=== PATIENT | female | born 1945 | race Caucasian/White ===

== ENCOUNTER 2023-06-22 11:15 | Emergency (ER) | payer MEDICARE, OTHER ==
[2023-06-22] MEDS ORDERED: Sodium Chloride 0.9% 10 ML Syringe FLUSH PRN (11:46)
[2023-06-22 11:57] LABS: HEMATOCRIT 28.9 % (37.0-47.0); HEMOGLOBIN 9.2 g/dL (12.0-16.0); MEAN CORPUSCULAR HEMOGLOBIN 28.4 pg (27.0-34.0); MEAN CORPUSCULAR HGB CONC 31.8 g/dL (33.0-35.0); MEAN CORPUSCULAR VOLUME 89.2 fL (80-100); PLATELET COUNT,PLT 140 10^3/uL (150-450); RED BLOOD CELL COUNT 3.24 10^6/uL (4.2-5.4); WHITE BLOOD CELL COUNT,WBC 12.7 10^3/uL (5.0-10.0)
[2023-06-22 12:02] LABS: BASOPHILS PERCENT AUTO 0.3 % (0.0-1.0); EOSINOPHILS PERCENT AUTO 1.3 % (1.0-3.0); LYMPHOCYTES PERCENT AUTO 13.9 % (20.5-50.1); MONOCYTES PERCENT AUTO 8.5 % (2-8)
[2023-06-22 12:12] LABS: APPEARANCE,URINE CLEAR (CLEAR); BILIRUBIN,URINE NEGATIVE (NEGATIVE); COLOR,URINE YELLOW (YELLOW); GLUCOSE,URINE NEGATIVE (NEGATIVE); KETONES,URINE TRACE (NEGATIVE); LEUKOCYTE ESTERASE,URINE SMALL (NEGATIVE); NITRITE,URINE NEGATIVE (NEGATIVE); OCCULT BLOOD,URINE NEGATIVE (NEGATIVE); PROTEIN,URINE NEGATIVE (NEGATIVE); UROBILINOGEN,URINE 0.2 mg/dL (0.2-1.0)
[2023-06-22 12:14] LABS: ALBUMIN 2.2 g/dL (3.4-5.0); ANION GAP 19.3 mEq/L (7-13); BILIRUBIN TOTAL 0.6 mg/dL (0.2-1.0); BUN/CREATININE RATIO 20.7 (No establ ref range); CALCIUM 8.5 mg/dL (8.5-10.1); CREATININE 0.92 mg/dL (0.55-1.02); EST CRCL DRUG DOSING (CG) 42.11 mL/min; POTASSIUM,K 4.3 mmol/L (3.5-5.1); PROTEIN TOTAL,TP 6.4 g/dL (6.4-8.2)
[2023-06-22 12:18] LABS: A/G RATIO 0.52
[2023-06-22] MEDS ORDERED: Aspirin 325 MG Tab PO ONE (12:20)
[2023-06-22 12:21] LABS: BACTERIA,URINE FEW /HPF (0-FEW/HPF); EPITHELIAL CELLS,URINE FEW /HPF (NOT SEEN); MUCUS,URINE OCCASIONAL /LPF (NOT SEEN); RBC,URINE 0-5 /HPF (0-5)
[2023-06-22] MEDS ORDERED: Morphine 2 MG/ML SYRINGE IVPUSH ONE (12:23)
[2023-06-22 12:26] LABS: BAND PERCENT MAN 8 %; EOSINOPHILS PERCENT MAN 1 % (1-3); LYMPHOCYTES PERCENT MAN 13 % (20-50); MONOCYTES PERCENT MAN 3 % (2-8); NRBC MANUAL 3 /100WBC; SEG NEUTROPHILS PERCENT MAN 75 % (42-75)
[2023-06-22] MEDS ORDERED: Aspirin 81 MG Tab.Chew ONE (12:30)
[2023-06-22] MEDS ORDERED: Aspirin 81 MG Tab.Chew PO ONE (12:31)
[2023-06-22] MEDS ORDERED: Iopamidol 612 MG/ML 100 ML Bottle IVPUSH ONE (12:43)
[2023-06-22] MEDS ORDERED: cefTRIAXone 1 GM Vial IVPUSH ONE ×2 (15:02→15:30)
[2023-06-22] MEDS ORDERED: Heparin Sodium/0.45% NaCl 25,000 UNITS/500 ML BAG IV SCH (15:15)
[2023-06-22 15:17] LABS: INR 2.2 (0.9-1.2); PROTHROMBIN TIME 21.5 SEC (9.0-12.0)
[2023-06-22] MEDS ORDERED: cefTRIAXone 250 MG Vial IM ONE (15:21)
== END 2023-06-22 18:26 ==
LOC: DL.ED 11:15
DX: I26.99 Other pulmonary embolism without acute cor pulmonale (principal); C78.02 Secondary malignant neoplasm of left lung; C80.1 Malignant (primary) neoplasm, unspecified; Z79.899 Other long term (current) drug therapy
CPT/HCPCS: 36415; 71045; 71260; 74177; 80053; 81001; 84484; 85025; 85610; 87086; 93005; 93010; 96365; 96366; 96375; 99285; A9270; J0696; J1644; J2270; Q9967; J3490

== ENCOUNTER 2023-07-06 11:46 | Emergency (ER) | payer MEDICARE, OTHER ==
[~2023-07-06 11:46] MED LIST: Sodium Chloride 0.9% 10 ML Syringe FLUSH PRN
[2023-07-06] MEDS ORDERED: Sodium Chloride 0.9% 1,000 ML IV ONE ×2 (12:04→12:12)
[2023-07-06 12:10] LABS: MEAN CORPUSCULAR HEMOGLOBIN 29.2 pg (27.0-34.0); MEAN CORPUSCULAR HGB CONC 32.9 g/dL (33.0-35.0); MEAN CORPUSCULAR VOLUME 88.8 fL (80-100); PLATELET COUNT,PLT 57 10^3/uL (150-450); RED BLOOD CELL COUNT 2.33 10^6/uL (4.2-5.4)
[2023-07-06 12:21] LABS: EOSINOPHILS PERCENT AUTO 11.3 % (1.0-3.0); HEMATOCRIT 20.7 % (37.0-47.0); HEMOGLOBIN 6.8 g/dL (12.0-16.0); LYMPHOCYTES PERCENT AUTO 52.8 % (20.5-50.1); MONOCYTES PERCENT AUTO 1.9 % (2-8); WHITE BLOOD CELL COUNT,WBC 0.5 10^3/uL (5.0-10.0)
[2023-07-06 12:29] LABS: ANION GAP 13.1 mEq/L (7-13); BILIRUBIN TOTAL 0.6 mg/dL (0.2-1.0); BUN/CREATININE RATIO 29.8 (No establ ref range); C-REACTIVE PROTEIN 13.35 ng/dL (<=0.30); CALCIUM 7.1 mg/dL (8.5-10.1); CREATININE 0.84 mg/dL (0.55-1.02); EST CRCL DRUG DOSING (CG) 46.13 mL/min; MAGNESIUM 1.8 mg/dL (1.8-2.4); POTASSIUM,K 4.1 mmol/L (3.5-5.1); PROTEIN TOTAL,TP 5.8 g/dL (6.4-8.2)
[2023-07-06 12:33] LABS: LACTIC ACID 1.1 mmol/L (0.4-2.0)
[2023-07-06 12:38] LABS: A/G RATIO 0.53
[2023-07-06 12:44] LABS: ANISOCYTOSIS 1+ SLIGHT; BAND PERCENT MAN 4 %; EOSINOPHILS PERCENT MAN 6 % (1-3); LYMPHOCYTES PERCENT MAN 52 % (20-50); MONOCYTES PERCENT MAN 8 % (2-8); MYELOCYTE PERCENT MAN 2; PLATELET COUNT ESTIMATE DECREASED; SEG NEUTROPHILS PERCENT MAN 28 % (42-75)
[2023-07-06] MEDS ORDERED: Pantoprazole 40 MG Vial IVPUSH ONE (12:51)
[2023-07-06] MEDS ORDERED: Pantoprazole 40 MG in Sodium Chloride 0.9% 100 ML IV SCH (12:52)
== END 2023-07-06 14:57 ==
LOC: DL.ED 11:46
DX: K92.2 Gastrointestinal hemorrhage, unspecified (principal); I10 Essential (primary) hypertension; Z87.891 Personal history of nicotine dependence
CPT/HCPCS: 36415; 36430; 80053; 82272; 83605; 83735; 85025; 86140; 86850; 86900; 86901; 86920; 86922; 96361; 96365; 96366; 99285; 99285-25; C9113; J3490; J7030; P9016

== ENCOUNTER 2023-07-25 11:52 | Inpatient (IN) | payer MEDICARE, OTHER ==
[2023-07-25] MEDS ORDERED: Albuterol/Ipratropium 3.0-0.5 MG/3 ML Neb Soln NEB PRN (15:18)
[2023-07-25] MEDS ORDERED: Ondansetron 4 MG Tab.DIS PO PRN (15:18)
[2023-07-25] MEDS ORDERED: Magnesium Hydroxide 400 MG/5 ML Susp 30 ML Cup PO PRN (15:18)
[2023-07-25] MEDS ORDERED: Sennosides/Docusate Sodium 50-8.6 MG Tab PO PRN (15:18)
[2023-07-25] MEDS ORDERED: Acetaminophen 325 MG Tab PO PRN (15:18)
[2023-07-25] MEDS ORDERED: Polyethylene Glycol 3350 Powder 17 GM Packet PO PRN (15:18)
[2023-07-25] MEDS ORDERED: Acetaminophen/oxyCODONE 325-5 MG Tab PO PRN (15:18)
[2023-07-25] MEDS ORDERED: Loperamide 2 MG Cap PO PRN (15:24)
[2023-07-25] MEDS ORDERED: Prochlorperazine 5 MG Tab PO PRN (15:55)
[2023-07-25] MEDS: Vancomycin 125 MG Cap PO SCH ×2 (16:35→21:19)
[2023-07-25] MEDS: Pantoprazole 40 MG Tab.CR PO SCH (16:35)
[2023-07-25] MEDS: Sucralfate Suspension 1 GM/10 ML Cup PO SCH ×2 (16:39→21:18)
[2023-07-25] MEDS: Potassium Chloride 10 MEQ Tab.ER PO SCH (17:00)
[2023-07-25] MEDS ORDERED: Melatonin 3 MG Tab PO SCH (21:00)
[2023-07-25] MEDS: Mirtazapine 15 MG Tab PO SCH (21:18)
[2023-07-25] MEDS: Apixaban 5 MG Tab PO SCH (21:18)
[2023-07-25] MEDS: amLODIPine 5 MG Tab PO SCH (21:18)
[2023-07-25] MEDS: Multivitamins with Iron/Calcium/Folic Acid/Minerals Tab PO SCH (21:18)
[2023-07-25] MEDS: Ascorbic Acid 500 MG Tab PO SCH (21:18)
[2023-07-25] MEDS: Acetaminophen 500 MG Tab PO SCH (21:18)
[2023-07-25] MEDS: Temazepam 15 MG Cap PO PRN (21:19)
[2023-07-25] MEDS: rOPINIRole 2 MG Tab PO SCH (21:19)
[2023-07-26] MEDS: Pantoprazole 40 MG Tab.CR PO SCH ×2 (05:01→16:15)
[2023-07-26] MEDS: Vancomycin 125 MG Cap PO SCH ×4 (08:11→22:10)
[2023-07-26] MEDS: Oxybutynin 5 MG Tab.ER PO SCH (08:11)
[2023-07-26] MEDS: Apixaban 5 MG Tab PO SCH ×2 (08:12→22:11)
[2023-07-26] MEDS: Acetaminophen 500 MG Tab PO SCH ×3 (08:12→22:10)
[2023-07-26] MEDS: Folic Acid 1 MG Tab PO SCH (08:12)
[2023-07-26] MEDS: Ferrous Sulfate 325 MG Tab PO SCH (08:12)
[2023-07-26] MEDS: Potassium Chloride 10 MEQ Tab.ER PO SCH ×2 (08:12→17:21)
[2023-07-26] MEDS: Phosphorus #1 250 MG Tab PO SCH (08:12)
[2023-07-26] MEDS: Calcium Carbonate/Vitamin D3 1250 MG-5 MCG Tab PO SCH (08:13)
[2023-07-26] MEDS: Sucralfate Suspension 1 GM/10 ML Cup PO SCH ×4 (08:13→22:09)
[2023-07-26] MEDS: Ascorbic Acid 500 MG Tab PO SCH ×2 (08:13→22:09)
[2023-07-26] MEDS: Losartan 50 MG Tab PO SCH (08:13)
[2023-07-26] MEDS: Fluticasone NASAL Spray 16 GM Bottle NASBOTH SCH (08:16)
[2023-07-26] MEDS ORDERED: MVI, Adult with Vitamin K 10 ML, Folic Acid 1 MG, Thiamine 100 MG in Lactated Ringers 1... IV ONE ×4 (14:46)
[2023-07-26] MEDS ORDERED: Thiamine 100 MG in Sodium Chloride 0.9% 100 ML IV ONE (14:47)
[2023-07-26] MEDS ORDERED: MVI, Adult with Vitamin K 10 ML, Folic Acid 1 MG, Thiamine 200 MG in Lactated Ringers 1... IV ONE ×4 (16:00)
[2023-07-26] MEDS: amLODIPine 5 MG Tab PO SCH (22:10)
[2023-07-26] MEDS: Multivitamins with Iron/Calcium/Folic Acid/Minerals Tab PO SCH (22:10)
[2023-07-26] MEDS: Temazepam 15 MG Cap PO PRN (22:11)
[2023-07-26] MEDS: rOPINIRole 2 MG Tab PO SCH (22:11)
[2023-07-26] MEDS: Mirtazapine 15 MG Tab PO SCH (22:11)
[2023-07-27] MEDS: oxyCODONE 5 MG Tab PO PRN (03:10)
[2023-07-27] MEDS: Apixaban 5 MG Tab PO SCH ×2 (08:45→20:02)
[2023-07-27] MEDS: Ferrous Sulfate 325 MG Tab PO SCH (08:45)
[2023-07-27] MEDS: Oxybutynin 5 MG Tab.ER PO SCH (08:45)
[2023-07-27] MEDS: Pantoprazole 40 MG Tab.CR PO SCH ×2 (08:45→15:46)
[2023-07-27] MEDS: Losartan 50 MG Tab PO SCH (08:46)
[2023-07-27] MEDS: Sucralfate Suspension 1 GM/10 ML Cup PO SCH ×4 (08:47→20:01)
[2023-07-27] MEDS: Acetaminophen 500 MG Tab PO SCH ×3 (08:50→20:02)
[2023-07-27] MEDS: Ascorbic Acid 500 MG Tab PO SCH ×2 (08:50→20:01)
[2023-07-27] MEDS: Potassium Chloride 10 MEQ Tab.ER PO SCH ×2 (08:50→17:11)
[2023-07-27] MEDS: Folic Acid 1 MG Tab PO SCH (08:51)
[2023-07-27] MEDS: Phosphorus #1 250 MG Tab PO SCH (08:51)
[2023-07-27] MEDS: Calcium Carbonate/Vitamin D3 1250 MG-5 MCG Tab PO SCH (08:51)
[2023-07-27] MEDS: Fluticasone NASAL Spray 16 GM Bottle NASBOTH SCH (08:51)
[2023-07-27] MEDS: Mirtazapine 15 MG Tab PO SCH (20:02)
[2023-07-27] MEDS: amLODIPine 5 MG Tab PO SCH ×2 (20:02→20:50)
[2023-07-27] MEDS: Multivitamins with Iron/Calcium/Folic Acid/Minerals Tab PO SCH (20:03)
[2023-07-27] MEDS: rOPINIRole 2 MG Tab PO SCH (20:03)
[2023-07-28] MEDS: oxyCODONE 5 MG Tab PO PRN (01:35)
[2023-07-28] MEDS: Pantoprazole 40 MG Tab.CR PO SCH ×2 (05:46→16:34)
[2023-07-28 06:40] LABS: HEMATOCRIT 24.5 % (37.0-47.0); HEMOGLOBIN 7.7 g/dL (12.0-16.0); MEAN CORPUSCULAR HEMOGLOBIN 29.6 pg (27.0-34.0); MEAN CORPUSCULAR HGB CONC 31.4 g/dL (33.0-35.0); MEAN CORPUSCULAR VOLUME 94.2 fL (80-100); PLATELET COUNT,PLT 183 10^3/uL (150-450); WHITE BLOOD CELL COUNT,WBC 18.2 10^3/uL (5.0-10.0)
[2023-07-28 06:49] LABS: BASOPHILS PERCENT AUTO 0.5 % (0.0-1.0); EOSINOPHILS PERCENT AUTO 0.5 % (1.0-3.0); MONOCYTES PERCENT AUTO 9.1 % (2-8); NEUTROPHILS PERCENT AUTO 73.9 % (42.2-75.2)
[2023-07-28 06:56] LABS: ALBUMIN 1.4 g/dL (3.4-5.0); BILIRUBIN TOTAL 0.4 mg/dL (0.2-1.0); BUN/CREATININE RATIO 10.5 (No establ ref range); CALCIUM 6.8 mg/dL (8.5-10.1); CREATININE 0.57 mg/dL (0.55-1.02); EST CRCL DRUG DOSING (CG) 70.83 mL/min; MAGNESIUM 1.4 mg/dL (1.8-2.4); PROTEIN TOTAL,TP 5.5 g/dL (6.4-8.2)
[2023-07-28 07:03] LABS: A/G RATIO 0.34
[2023-07-28 07:07] LABS: BAND PERCENT MAN 13 %; LYMPHOCYTES PERCENT MAN 13 % (20-50); METAMYELOCYTE PERCENT MAN 2; MONOCYTES PERCENT MAN 11 % (2-8); NRBC MANUAL 1 /100WBC; SEG NEUTROPHILS PERCENT MAN 61 % (42-75)
[2023-07-28] MEDS: Ascorbic Acid 500 MG Tab PO SCH ×2 (08:46→21:12)
[2023-07-28] MEDS: Sucralfate Suspension 1 GM/10 ML Cup PO SCH ×4 (08:46→21:13)
[2023-07-28] MEDS: Acetaminophen 500 MG Tab PO SCH ×3 (08:48→21:12)
[2023-07-28] MEDS: Potassium Chloride 10 MEQ Tab.ER PO SCH ×2 (08:49→17:29)
[2023-07-28] MEDS: Phosphorus #1 250 MG Tab PO SCH (08:49)
[2023-07-28] MEDS: Folic Acid 1 MG Tab PO SCH (08:51)
[2023-07-28] MEDS: Oxybutynin 5 MG Tab.ER PO SCH (08:51)
[2023-07-28] MEDS: Apixaban 5 MG Tab PO SCH ×2 (08:52→21:13)
[2023-07-28] MEDS: Losartan 50 MG Tab PO SCH (08:52)
[2023-07-28] MEDS: Ferrous Sulfate 325 MG Tab PO SCH (08:53)
[2023-07-28] MEDS: Calcium Carbonate/Vitamin D3 1250 MG-5 MCG Tab PO SCH (08:53)
[2023-07-28] MEDS: Fluticasone NASAL Spray 16 GM Bottle NASBOTH SCH (08:58)
[2023-07-28] MEDS: Magnesium Oxide 400 MG Tab PO SCH (17:29)
[2023-07-28] MEDS: Multivitamins with Iron/Calcium/Folic Acid/Minerals Tab PO SCH (21:12)
[2023-07-28] MEDS: Mirtazapine 15 MG Tab PO SCH (21:13)
[2023-07-28] MEDS: rOPINIRole 2 MG Tab PO SCH (21:13)
[2023-07-28] MEDS: amLODIPine 5 MG Tab PO SCH (21:13)
[2023-07-28] MEDS: Temazepam 15 MG Cap PO PRN (21:25)
[2023-07-29] MEDS: Pantoprazole 40 MG Tab.CR PO SCH ×3 (04:37→16:22)
[2023-07-29] MEDS: Potassium Chloride 10 MEQ Tab.ER PO SCH ×2 (07:40→17:16)
[2023-07-29] MEDS: Magnesium Oxide 400 MG Tab PO SCH ×2 (07:41→17:16)
[2023-07-29] MEDS: Fluticasone NASAL Spray 16 GM Bottle NASBOTH SCH (10:06)
[2023-07-29] MEDS: Sucralfate Suspension 1 GM/10 ML Cup PO SCH ×4 (10:07→21:48)
[2023-07-29] MEDS: Ferrous Sulfate 325 MG Tab PO SCH (10:08)
[2023-07-29] MEDS: Losartan 50 MG Tab PO SCH (10:08)
[2023-07-29] MEDS: Apixaban 5 MG Tab PO SCH ×2 (10:09→21:46)
[2023-07-29] MEDS: Oxybutynin 5 MG Tab.ER PO SCH (10:09)
[2023-07-29] MEDS: Acetaminophen 500 MG Tab PO SCH ×3 (10:10→21:46)
[2023-07-29] MEDS: Folic Acid 1 MG Tab PO SCH (10:10)
[2023-07-29] MEDS: Calcium Carbonate/Vitamin D3 1250 MG-5 MCG Tab PO SCH (10:11)
[2023-07-29] MEDS: Phosphorus #1 250 MG Tab PO SCH (10:11)
[2023-07-29] MEDS: Ascorbic Acid 500 MG Tab PO SCH ×2 (10:12→21:48)
[2023-07-29] MEDS: Mirtazapine 15 MG Tab PO SCH (21:46)
[2023-07-29] MEDS: amLODIPine 5 MG Tab PO SCH (21:46)
[2023-07-29] MEDS: Multivitamins with Iron/Calcium/Folic Acid/Minerals Tab PO SCH (21:46)
[2023-07-29] MEDS: Temazepam 15 MG Cap PO PRN (21:47)
[2023-07-29] MEDS: rOPINIRole 2 MG Tab PO SCH (21:48)
[2023-07-30] MEDS: Pantoprazole 40 MG Tab.CR PO SCH ×2 (06:01→16:28)
[2023-07-30] MEDS: Acetaminophen 500 MG Tab PO SCH ×3 (08:49→21:26)
[2023-07-30] MEDS: Apixaban 5 MG Tab PO SCH ×2 (08:51→21:25)
[2023-07-30] MEDS: Folic Acid 1 MG Tab PO SCH (08:51)
[2023-07-30] MEDS: Sucralfate Suspension 1 GM/10 ML Cup PO SCH ×4 (08:51→21:23)
[2023-07-30] MEDS: Potassium Chloride 10 MEQ Tab.ER PO SCH ×2 (08:51→18:11)
[2023-07-30] MEDS: Oxybutynin 5 MG Tab.ER PO SCH (08:51)
[2023-07-30] MEDS: Phosphorus #1 250 MG Tab PO SCH (08:52)
[2023-07-30] MEDS: Calcium Carbonate/Vitamin D3 1250 MG-5 MCG Tab PO SCH (08:52)
[2023-07-30] MEDS: Magnesium Oxide 400 MG Tab PO SCH (08:52)
[2023-07-30] MEDS: Ferrous Sulfate 325 MG Tab PO SCH (08:55)
[2023-07-30] MEDS: Losartan 50 MG Tab PO SCH (08:58)
[2023-07-30] MEDS: Ascorbic Acid 500 MG Tab PO SCH ×2 (09:07→21:25)
[2023-07-30] MEDS: Fluticasone NASAL Spray 16 GM Bottle NASBOTH SCH (09:07)
[2023-07-30] MEDS: MAGNESIUM CHLORIDE 64 MG PO SCH ×4 (10:29→20:14)
[2023-07-30] MEDS: ZINC 50 MG PO SCH (12:11)
[2023-07-30] MEDS: rOPINIRole 2 MG Tab PO SCH (21:24)
[2023-07-30] MEDS: amLODIPine 5 MG Tab PO SCH (21:24)
[2023-07-30] MEDS: Mirtazapine 15 MG Tab PO SCH (21:24)
[2023-07-30] MEDS: Multivitamins with Iron/Calcium/Folic Acid/Minerals Tab PO SCH (21:25)
[2023-07-31] MEDS: Pantoprazole 40 MG Tab.CR PO SCH ×2 (06:14→17:51)
[2023-07-31] MEDS: Losartan 50 MG Tab PO SCH (10:07)
[2023-07-31] MEDS: Calcium Carbonate/Vitamin D3 1250 MG-5 MCG Tab PO SCH (10:07)
[2023-07-31] MEDS: Phosphorus #1 250 MG Tab PO SCH (10:08)
[2023-07-31] MEDS: Acetaminophen 500 MG Tab PO SCH ×3 (10:09→20:30)
[2023-07-31] MEDS: Sucralfate Suspension 1 GM/10 ML Cup PO SCH ×4 (10:09→20:27)
[2023-07-31] MEDS: Potassium Chloride 10 MEQ Tab.ER PO SCH ×2 (10:09→17:52)
[2023-07-31] MEDS: Oxybutynin 5 MG Tab.ER PO SCH (10:10)
[2023-07-31] MEDS: Ascorbic Acid 500 MG Tab PO SCH ×2 (10:10→20:29)
[2023-07-31] MEDS: Folic Acid 1 MG Tab PO SCH (10:10)
[2023-07-31] MEDS: Ferrous Sulfate 325 MG Tab PO SCH (10:10)
[2023-07-31] MEDS: Apixaban 5 MG Tab PO SCH ×2 (10:10→20:27)
[2023-07-31] MEDS: Fluticasone NASAL Spray 16 GM Bottle NASBOTH SCH (10:21)
[2023-07-31] MEDS: ZINC 50 MG PO SCH (13:00)
[2023-07-31] MEDS: MAGNESIUM CHLORIDE 64 MG PO SCH (17:52)
[2023-07-31] MEDS: rOPINIRole 2 MG Tab PO SCH (20:27)
[2023-07-31] MEDS: Mirtazapine 15 MG Tab PO SCH (20:27)
[2023-07-31] MEDS: amLODIPine 5 MG Tab PO SCH (20:28)
[2023-07-31] MEDS: Multivitamins with Iron/Calcium/Folic Acid/Minerals Tab PO SCH (20:29)
[2023-08-01] MEDS: oxyCODONE 5 MG Tab PO PRN (04:59)
[2023-08-01] MEDS: Pantoprazole 40 MG Tab.CR PO SCH ×2 (05:00→17:19)
[2023-08-01] MEDS: Sucralfate Suspension 1 GM/10 ML Cup PO SCH ×4 (08:36→20:24)
[2023-08-01] MEDS: Potassium Chloride 10 MEQ Tab.ER PO SCH ×2 (08:36→17:19)
[2023-08-01] MEDS: Folic Acid 1 MG Tab PO SCH (08:36)
[2023-08-01] MEDS: Acetaminophen 500 MG Tab PO SCH ×3 (08:36→20:21)
[2023-08-01] MEDS: Apixaban 5 MG Tab PO SCH ×2 (08:36→20:20)
[2023-08-01] MEDS: Oxybutynin 5 MG Tab.ER PO SCH (08:36)
[2023-08-01] MEDS: Phosphorus #1 250 MG Tab PO SCH (08:36)
[2023-08-01] MEDS: Ascorbic Acid 500 MG Tab PO SCH ×2 (08:36→20:23)
[2023-08-01] MEDS: Ferrous Sulfate 325 MG Tab PO SCH (08:37)
[2023-08-01] MEDS: Calcium Carbonate/Vitamin D3 1250 MG-5 MCG Tab PO SCH (08:37)
[2023-08-01] MEDS: Losartan 50 MG Tab PO SCH (08:43)
[2023-08-01] MEDS: Fluticasone NASAL Spray 16 GM Bottle NASBOTH SCH (08:46)
[2023-08-01] MEDS: ZINC 50 MG PO SCH (13:02)
[2023-08-01] MEDS: MAGNESIUM CHLORIDE 64 MG PO SCH (17:19)
[2023-08-01] MEDS: rOPINIRole 2 MG Tab PO SCH (20:20)
[2023-08-01] MEDS: Mirtazapine 15 MG Tab PO SCH (20:20)
[2023-08-01] MEDS: Multivitamins with Iron/Calcium/Folic Acid/Minerals Tab PO SCH (20:22)
[2023-08-01] MEDS: amLODIPine 5 MG Tab PO SCH (20:23)
[2023-08-01] MEDS: Temazepam 15 MG Cap PO PRN (22:24)
[2023-08-02] MEDS: Pantoprazole 40 MG Tab.CR PO SCH ×2 (05:36→17:00)
[2023-08-02] MEDS: Acetaminophen 500 MG Tab PO SCH ×3 (08:14→20:37)
[2023-08-02] MEDS: Losartan 50 MG Tab PO SCH (08:16)
[2023-08-02] MEDS: Sucralfate Suspension 1 GM/10 ML Cup PO SCH ×4 (08:17→20:35)
[2023-08-02] MEDS: Fluticasone NASAL Spray 16 GM Bottle NASBOTH SCH (08:17)
[2023-08-02] MEDS: Ascorbic Acid 500 MG Tab PO SCH ×2 (08:17→20:36)
[2023-08-02] MEDS: Folic Acid 1 MG Tab PO SCH (08:18)
[2023-08-02] MEDS: Potassium Chloride 10 MEQ Tab.ER PO SCH ×2 (08:18→17:00)
[2023-08-02] MEDS: Oxybutynin 5 MG Tab.ER PO SCH (08:18)
[2023-08-02] MEDS: Apixaban 5 MG Tab PO SCH ×2 (08:19→20:36)
[2023-08-02] MEDS: Calcium Carbonate/Vitamin D3 1250 MG-5 MCG Tab PO SCH (08:19)
[2023-08-02] MEDS: Ferrous Sulfate 325 MG Tab PO SCH (08:19)
[2023-08-02] MEDS: Phosphorus #1 250 MG Tab PO SCH (08:19)
[2023-08-02] MEDS: ZINC 50 MG PO SCH (13:18)
[2023-08-02] MEDS ORDERED: Temazepam 15 MG Cap PO PRN (14:39)
[2023-08-02] MEDS: MAGNESIUM CHLORIDE 64 MG PO SCH (17:02)
[2023-08-02] MEDS: rOPINIRole 2 MG Tab PO SCH (20:37)
[2023-08-02] MEDS: Mirtazapine 15 MG Tab PO SCH (20:37)
[2023-08-02] MEDS: amLODIPine 5 MG Tab PO SCH (20:39)
[2023-08-02] MEDS: Multivitamins with Iron/Calcium/Folic Acid/Minerals Tab PO SCH (20:39)
[2023-08-02] MEDS: Mineral Oil/Petrolatum/Phenylephrine/Shark Liver Oil Oint 57 GM Tube TOP PRN (21:40)
[2023-08-02] MEDS ORDERED: Ibuprofen 600 MG Tab PO PRN (22:46)
[2023-08-03] MEDS: Pantoprazole 40 MG Tab.CR PO SCH ×2 (06:10→17:01)
[2023-08-03] MEDS: Losartan 50 MG Tab PO SCH (08:12)
[2023-08-03] MEDS: Ferrous Sulfate 325 MG Tab PO SCH (08:12)
[2023-08-03] MEDS: Folic Acid 1 MG Tab PO SCH (08:12)
[2023-08-03] MEDS: Calcium Carbonate/Vitamin D3 1250 MG-5 MCG Tab PO SCH (08:13)
[2023-08-03] MEDS: Apixaban 5 MG Tab PO SCH ×2 (08:13→20:38)
[2023-08-03] MEDS: Ascorbic Acid 500 MG Tab PO SCH ×2 (08:13→20:38)
[2023-08-03] MEDS: Potassium Chloride 10 MEQ Tab.ER PO SCH ×2 (08:14→17:01)
[2023-08-03] MEDS: Phosphorus #1 250 MG Tab PO SCH (08:14)
[2023-08-03] MEDS: Acetaminophen 500 MG Tab PO SCH ×4 (08:14→20:39)
[2023-08-03] MEDS: Sucralfate Suspension 1 GM/10 ML Cup PO SCH ×4 (08:14→20:37)
[2023-08-03] MEDS: Fluticasone NASAL Spray 16 GM Bottle NASBOTH SCH (08:15)
[2023-08-03] MEDS: Mineral Oil/Petrolatum/Phenylephrine/Shark Liver Oil Oint 57 GM Tube TOP PRN (08:23)
[2023-08-03] MEDS: Oxybutynin 5 MG Tab.ER PO SCH (11:36)
[2023-08-03] MEDS: ZINC 50 MG PO SCH (11:38)
[2023-08-03] MEDS: MAGNESIUM CHLORIDE 64 MG PO SCH (17:04)
[2023-08-03] MEDS: Mirtazapine 15 MG Tab PO SCH (20:37)
[2023-08-03] MEDS: rOPINIRole 2 MG Tab PO SCH (20:38)
[2023-08-03] MEDS: amLODIPine 5 MG Tab PO SCH (20:39)
[2023-08-03] MEDS: Multivitamins with Iron/Calcium/Folic Acid/Minerals Tab PO SCH (20:39)
[2023-08-04] MEDS: Pantoprazole 40 MG Tab.CR PO SCH ×2 (06:15→16:34)
[2023-08-04 06:17] LABS: HEMATOCRIT 21.4 % (37.0-47.0); MEAN CORPUSCULAR HEMOGLOBIN 29.3 pg (27.0-34.0); MEAN CORPUSCULAR HGB CONC 31.8 g/dL (33.0-35.0); MEAN CORPUSCULAR VOLUME 92.2 fL (80-100); PLATELET COUNT,PLT 301 10^3/uL (150-450); RED BLOOD CELL COUNT 2.32 10^6/uL (4.2-5.4); WHITE BLOOD CELL COUNT,WBC 25.5 10^3/uL (5.0-10.0)
[2023-08-04 06:35] LABS: HEMOGLOBIN 6.8 g/dL (12.0-16.0)
[2023-08-04 06:36] LABS: BASOPHILS PERCENT AUTO 0.5 % (0.0-1.0); LYMPHOCYTES PERCENT AUTO 14.8 % (20.5-50.1); MONOCYTES PERCENT AUTO 8.3 % (2-8); NEUTROPHILS PERCENT AUTO 75.4 % (42.2-75.2)
[2023-08-04 06:48] LABS: ALBUMIN 1.3 g/dL (3.4-5.0); ANION GAP 14.6 mEq/L (7-13); BILIRUBIN TOTAL 0.5 mg/dL (0.2-1.0); BUN/CREATININE RATIO 15.8 (No establ ref range); CALCIUM 6.2 mg/dL (8.5-10.1); CREATININE 0.57 mg/dL (0.55-1.02); EST CRCL DRUG DOSING (CG) 67.7 mL/min; MAGNESIUM 1.5 mg/dL (1.8-2.4); POTASSIUM,K 4.6 mmol/L (3.5-5.1); PROTEIN TOTAL,TP 5.1 g/dL (6.4-8.2)
[2023-08-04 06:50] LABS: A/G RATIO 0.34
[2023-08-04 07:47] LABS: BAND PERCENT MAN 11 %; EOSINOPHILS PERCENT MAN 4 % (1-3); LYMPHOCYTES PERCENT MAN 9 % (20-50); METAMYELOCYTE PERCENT MAN 3; MONOCYTES PERCENT MAN 4 % (2-8); NRBC MANUAL 3 /100WBC; SEG NEUTROPHILS PERCENT MAN 69 % (42-75)
[2023-08-04] MEDS: Sucralfate Suspension 1 GM/10 ML Cup PO SCH ×4 (08:02→20:37)
[2023-08-04] MEDS: Folic Acid 1 MG Tab PO SCH ×2 (08:03→15:33)
[2023-08-04] MEDS: Apixaban 5 MG Tab PO SCH ×3 (08:03→20:36)
[2023-08-04] MEDS: Losartan 50 MG Tab PO SCH ×2 (08:03→15:35)
[2023-08-04] MEDS: Oxybutynin 5 MG Tab.ER PO SCH ×2 (08:04→15:32)
[2023-08-04] MEDS: Ascorbic Acid 500 MG Tab PO SCH ×2 (08:04→20:37)
[2023-08-04] MEDS: Phosphorus #1 250 MG Tab PO SCH (08:04)
[2023-08-04] MEDS: Potassium Chloride 10 MEQ Tab.ER PO SCH ×2 (08:04→17:13)
[2023-08-04] MEDS: Calcium Carbonate/Vitamin D3 1250 MG-5 MCG Tab PO SCH (08:04)
[2023-08-04] MEDS: Ferrous Sulfate 325 MG Tab PO SCH (08:04)
[2023-08-04] MEDS: Mineral Oil/Petrolatum/Phenylephrine/Shark Liver Oil Oint 57 GM Tube TOP PRN (08:05)
[2023-08-04] MEDS: Acetaminophen 500 MG Tab PO SCH ×3 (08:05→20:37)
[2023-08-04] MEDS: Fluticasone NASAL Spray 16 GM Bottle NASBOTH SCH (08:05)
[2023-08-04] MEDS ORDERED: Acetaminophen 325 MG Tab PO ONE (08:29)
[2023-08-04] MEDS ORDERED: diphenhydrAMINE 50 MG/ML SDV IV ONE (08:29)
[2023-08-04] MEDS ORDERED: Dexamethasone 4 MG/ML SDV IVPUSH ONE (08:29)
[2023-08-04] MEDS ORDERED: Magnesium Sulfate/Water 2 GM in Premix Bag 1 BAG IV ONE ×2 (08:29→17:00)
[2023-08-04] MEDS: Ondansetron 4 MG Tab.DIS PO PRN (08:38)
[2023-08-04] MEDS: Cholecalciferol (Vitamin D3) 25 MCG Tab PO ONE ×2 (11:24→18:33)
[2023-08-04] MEDS: ZINC 50 MG PO SCH (14:46)
[2023-08-04] MEDS: MAGNESIUM CHLORIDE 64 MG PO SCH (17:13)
[2023-08-04] MEDS: Mirtazapine 15 MG Tab PO SCH (20:36)
[2023-08-04] MEDS: Multivitamins with Iron/Calcium/Folic Acid/Minerals Tab PO SCH (20:36)
[2023-08-04] MEDS: rOPINIRole 2 MG Tab PO SCH (20:36)
[2023-08-04] MEDS: amLODIPine 5 MG Tab PO SCH (20:36)
[2023-08-05] MEDS: Pantoprazole 40 MG Tab.CR PO SCH ×2 (05:39→17:14)
[2023-08-05] MEDS: Folic Acid 1 MG Tab PO SCH (08:32)
[2023-08-05] MEDS: Phosphorus #1 250 MG Tab PO SCH ×2 (08:33→10:30)
[2023-08-05] MEDS: Oxybutynin 5 MG Tab.ER PO SCH (08:33)
[2023-08-05] MEDS: Apixaban 5 MG Tab PO SCH ×2 (08:33→20:17)
[2023-08-05] MEDS: Ferrous Sulfate 325 MG Tab PO SCH (08:33)
[2023-08-05] MEDS: Acetaminophen 500 MG Tab PO SCH ×3 (08:33→20:08)
[2023-08-05] MEDS: Ascorbic Acid 500 MG Tab PO SCH ×3 (08:33→20:09)
[2023-08-05] MEDS: Calcium Carbonate/Vitamin D3 1250 MG-5 MCG Tab PO SCH (08:34)
[2023-08-05] MEDS: Sucralfate Suspension 1 GM/10 ML Cup PO SCH ×4 (08:34→20:10)
[2023-08-05] MEDS: Cholecalciferol (Vitamin D3) 10 MCG Tab PO SCH (08:34)
[2023-08-05] MEDS: Losartan 50 MG Tab PO SCH (08:35)
[2023-08-05] MEDS: Potassium Chloride 10 MEQ Tab.ER PO SCH ×2 (10:29→17:14)
[2023-08-05] MEDS: Fluticasone NASAL Spray 16 GM Bottle NASBOTH SCH (10:32)
[2023-08-05] MEDS: ZINC 50 MG PO SCH (12:00)
[2023-08-05] MEDS: MAGNESIUM CHLORIDE 64 MG PO SCH (17:15)
[2023-08-05] MEDS: Multivitamins with Iron/Calcium/Folic Acid/Minerals Tab PO SCH (20:08)
[2023-08-05] MEDS: rOPINIRole 2 MG Tab PO SCH (20:10)
[2023-08-05] MEDS: amLODIPine 5 MG Tab PO SCH (20:16)
[2023-08-05] MEDS: Mirtazapine 15 MG Tab PO SCH (20:17)
[2023-08-06] MEDS: Pantoprazole 40 MG Tab.CR PO SCH ×2 (06:26→17:03)
[2023-08-06] MEDS: Ascorbic Acid 500 MG Tab PO SCH ×2 (08:32→20:48)
[2023-08-06] MEDS: Acetaminophen 500 MG Tab PO SCH ×3 (08:34→20:47)
[2023-08-06] MEDS: Potassium Chloride 10 MEQ Tab.ER PO SCH ×2 (08:34→17:03)
[2023-08-06] MEDS: Cholecalciferol (Vitamin D3) 10 MCG Tab PO SCH (08:35)
[2023-08-06] MEDS: Losartan 50 MG Tab PO SCH (08:36)
[2023-08-06] MEDS: Calcium Carbonate/Vitamin D3 1250 MG-5 MCG Tab PO SCH ×2 (08:36→11:05)
[2023-08-06] MEDS: Ferrous Sulfate 325 MG Tab PO SCH (08:37)
[2023-08-06] MEDS: Oxybutynin 5 MG Tab.ER PO SCH (08:37)
[2023-08-06] MEDS: Apixaban 5 MG Tab PO SCH ×2 (08:38→20:46)
[2023-08-06] MEDS: Folic Acid 1 MG Tab PO SCH (08:38)
[2023-08-06] MEDS: Phosphorus #1 250 MG Tab PO SCH (08:38)
[2023-08-06] MEDS: Fluticasone NASAL Spray 16 GM Bottle NASBOTH SCH (08:39)
[2023-08-06] MEDS: Ondansetron 4 MG Tab.DIS PO PRN (10:55)
[2023-08-06] MEDS ORDERED: Sucralfate Suspension 1 GM/10 ML Cup PO SCH (11:00)
[2023-08-06] MEDS: ZINC 50 MG PO SCH (11:00)
[2023-08-06] MEDS: Sucralfate Suspension 1 GM/10 ML Cup PO SCH ×2 (17:04→20:45)
[2023-08-06] MEDS: MAGNESIUM CHLORIDE 64 MG PO SCH (17:05)
[2023-08-06] MEDS: rOPINIRole 2 MG Tab PO SCH (20:47)
[2023-08-06] MEDS: amLODIPine 5 MG Tab PO SCH (20:47)
[2023-08-06] MEDS: Multivitamins with Iron/Calcium/Folic Acid/Minerals Tab PO SCH (20:47)
[2023-08-06] MEDS: Mirtazapine 15 MG Tab PO SCH (20:47)
[2023-08-07] MEDS: Pantoprazole 40 MG Tab.CR PO SCH ×2 (06:23→17:19)
[2023-08-07] MEDS: Sucralfate Suspension 1 GM/10 ML Cup PO SCH ×4 (06:23→21:04)
[2023-08-07 06:35] LABS: HEMATOCRIT 25.6 % (37.0-47.0); HEMOGLOBIN 8.4 g/dL (12.0-16.0); MEAN CORPUSCULAR HEMOGLOBIN 30.2 pg (27.0-34.0); MEAN CORPUSCULAR HGB CONC 32.8 g/dL (33.0-35.0); MEAN CORPUSCULAR VOLUME 92.1 fL (80-100); PLATELET COUNT,PLT 261 10^3/uL (150-450); RED BLOOD CELL COUNT 2.78 10^6/uL (4.2-5.4); WHITE BLOOD CELL COUNT,WBC 23.2 10^3/uL (5.0-10.0)
[2023-08-07 07:12] LABS: ALBUMIN 1.3 g/dL (3.4-5.0); ANION GAP 11.4 mEq/L (7-13); BILIRUBIN TOTAL 0.5 mg/dL (0.2-1.0); BUN/CREATININE RATIO 22.4 (No establ ref range); CREATININE 0.67 mg/dL (0.55-1.02); EST CRCL DRUG DOSING (CG) 57.59 mL/min; MAGNESIUM 1.7 mg/dL (1.8-2.4); POTASSIUM,K 4.4 mmol/L (3.5-5.1); PROTEIN TOTAL,TP 5.1 g/dL (6.4-8.2)
[2023-08-07 07:14] LABS: A/G RATIO 0.34; CALCIUM 5.9 mg/dL (8.5-10.1)
[2023-08-07 07:49] LABS: ANISOCYTOSIS 2+ MODERATE; BAND PERCENT MAN 6 %; EOSINOPHILS PERCENT MAN 2 % (1-3); LYMPHOCYTES PERCENT MAN 15 % (20-50); MICROCYTOSIS FEW; MONOCYTES PERCENT MAN 10 % (2-8); NRBC MANUAL 3 /100WBC; SEG NEUTROPHILS PERCENT MAN 67 % (42-75); SPHEROCYTES FEW
[2023-08-07 07:50] LABS: HYPOCHROMASIA 1+ SLIGHT; POIKILOCYTOSIS 1+ SLIGHT; SCHISTOCYTES FEW; TARGET CELLS RARE
[2023-08-07 07:51] LABS: STOMATOCYTES FEW
[2023-08-07] MEDS: Calcium Carbonate/Vitamin D3 1250 MG-5 MCG Tab PO SCH (08:32)
[2023-08-07] MEDS: Potassium Chloride 10 MEQ Tab.ER PO SCH ×2 (08:32→18:42)
[2023-08-07] MEDS: Oxybutynin 5 MG Tab.ER PO SCH (08:33)
[2023-08-07] MEDS: Apixaban 5 MG Tab PO SCH ×2 (08:33→20:59)
[2023-08-07] MEDS: Cholecalciferol (Vitamin D3) 10 MCG Tab PO SCH (08:33)
[2023-08-07] MEDS: Ondansetron 4 MG Tab.DIS PO PRN (08:33)
[2023-08-07] MEDS: Losartan 50 MG Tab PO SCH (08:34)
[2023-08-07] MEDS: Ascorbic Acid 500 MG Tab PO SCH ×2 (08:37→20:43)
[2023-08-07] MEDS: Folic Acid 1 MG Tab PO SCH (08:37)
[2023-08-07] MEDS: Fluticasone NASAL Spray 16 GM Bottle NASBOTH SCH (08:37)
[2023-08-07] MEDS: Phosphorus #1 250 MG Tab PO SCH (08:37)
[2023-08-07] MEDS: Ferrous Sulfate 325 MG Tab PO SCH (08:37)
[2023-08-07] MEDS: Acetaminophen 500 MG Tab PO SCH ×3 (08:37→20:59)
[2023-08-07] MEDS: ZINC 50 MG PO SCH (11:43)
[2023-08-07] MEDS ORDERED: Magnesium Sulfate/Water 2 GM in Premix Bag 1 BAG IV ONE (12:26)
[2023-08-07] MEDS: MAGNESIUM CHLORIDE 64 MG PO SCH (18:42)
[2023-08-07] MEDS: Magnesium Oxide 400 MG Tab PO SCH (18:42)
[2023-08-07] MEDS: Multivitamins with Iron/Calcium/Folic Acid/Minerals Tab PO SCH (20:43)
[2023-08-07] MEDS: amLODIPine 5 MG Tab PO SCH (20:57)
[2023-08-07] MEDS: Mirtazapine 15 MG Tab PO SCH (20:59)
[2023-08-07] MEDS: rOPINIRole 2 MG Tab PO SCH (20:59)
[2023-08-08] MEDS: Pantoprazole 40 MG Tab.CR PO SCH (06:16)
[2023-08-08] MEDS: Sucralfate Suspension 1 GM/10 ML Cup PO SCH ×2 (06:16→10:52)
[2023-08-08] MEDS: Ondansetron 4 MG Tab.DIS PO PRN (08:17)
[2023-08-08] MEDS: Losartan 50 MG Tab PO SCH (08:18)
[2023-08-08] MEDS: Apixaban 5 MG Tab PO SCH (08:18)
[2023-08-08] MEDS: Magnesium Oxide 400 MG Tab PO SCH (08:19)
[2023-08-08] MEDS: Oxybutynin 5 MG Tab.ER PO SCH (08:19)
[2023-08-08] MEDS: Potassium Chloride 10 MEQ Tab.ER PO SCH (08:20)
[2023-08-08] MEDS: Ferrous Sulfate 325 MG Tab PO SCH (08:20)
[2023-08-08] MEDS: Folic Acid 1 MG Tab PO SCH (08:21)
[2023-08-08] MEDS: Calcium Carbonate/Vitamin D3 1250 MG-5 MCG Tab PO SCH (08:22)
[2023-08-08] MEDS: Ascorbic Acid 500 MG Tab PO SCH (08:22)
[2023-08-08] MEDS: Phosphorus #1 250 MG Tab PO SCH (08:22)
[2023-08-08] MEDS: Cholecalciferol (Vitamin D3) 10 MCG Tab PO SCH (08:24)
[2023-08-08] MEDS: Fluticasone NASAL Spray 16 GM Bottle NASBOTH SCH (09:06)
[2023-08-08] MEDS: Acetaminophen 500 MG Tab PO SCH (09:07)
[2023-08-08] MEDS: ZINC 50 MG PO SCH (12:08)
== END 2023-08-08 13:00 | disposition home health service (06) | DRG 947 ==
LOC: UNDOADMIN 12:07 → DL.MS 12:07
PROVIDERS: ADMIT Internal Medicine; ATTEND Internal Medicine
PROC: 30233N1 Transfusion of Nonautologous Red Blood Cells into Peripheral Vein, Percutaneous Approach (ICD-10-PCS; principal; 2023-08-04)
DX: R53.1 Weakness (principal); D61.810 Antineoplastic chemotherapy induced pancytopenia; E43 Unspecified severe protein-calorie malnutrition; C34.92 Malignant neoplasm of unspecified part of left bronchus or lung; C34.91 Malignant neoplasm of unspecified part of right bronchus or lung; K92.1 Melena; K92.2 Gastrointestinal hemorrhage, unspecified; E87.1 Hypo-osmolality and hyponatremia; Z87.891 Personal history of nicotine dependence; I10 Essential (primary) hypertension; E78.5 Hyperlipidemia, unspecified; K21.9 Gastro-esophageal reflux disease without esophagitis; M19.90 Unspecified osteoarthritis, unspecified site; G25.81 Restless legs syndrome; Z66 Do not resuscitate; K12.31 Oral mucositis (ulcerative) due to antineoplastic therapy; T45.1X5A Adverse effect of antineoplastic and immunosuppressive drugs, initial encounter; E87.8 Other disorders of electrolyte and fluid balance, not elsewhere classified; D72.829 Elevated white blood cell count, unspecified; Z86.711 Personal history of pulmonary embolism; R53.81 Other malaise; G47.00 Insomnia, unspecified; Z96.659 Presence of unspecified artificial knee joint; D64.9 Anemia, unspecified; E83.42 Hypomagnesemia; R74.8 Abnormal levels of other serum enzymes; E55.9 Vitamin D deficiency, unspecified; R11.0 Nausea
CPT/HCPCS: 36415; 36430; 80053; 82306; 83735; 85025; 86850; 86900; 86901; 86920; 86922; 97110-GO; 97110-GP; 97116-GP; 97161-GP; 97165-GO; 97530-GO; 97530-GP; 97535-GO; 99306; 99310; 99315; A9270-GY; J1100; J1200; J3411; J3475; J3490; J7120; P9016